=== PATIENT | female | born 1950 | race Caucasian/White ===

== ENCOUNTER 2018-01-28 20:13 | Emergency (ER) | payer MEDICARE, BC ==
[2018-01-28 20:29] VITALS: BP 146/67
--- NOTE | 2018-01-28 20:35 | EDM.PDOC ---
ED HPI GENERAL MEDICAL PROBLEM - General Chief Complaint: Upper Extremity Injury/Pain Stated Complaint: LEFT RING FINGER SWOLLEN Time Seen by Provider: 01/28/18 20:30 Source of Information: Reports: Patient, Old Records, RN History Limitations: Reports: No Limitations - History of Present Illness INITIAL COMMENTS - FREE TEXT/NARRATIVE: 67 yo female here requesting removal of her L hand ring finger due to some finger swelling from an injury associated with a fall this morning. Has nearly full ROM still in the injured fingers. Has some superficial scratches. Slipped on wet floor at home this morning. 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 (see below) (none) - Related Data Allergies Allergy/AdvReac Type Severity Reaction Status Date / Time diagnostic x-ray materials Allergy Mild Rash Uncoded 01/28/18 20:21 Home Meds: Home Meds Triamterene/Hydrochlorothiazid [Triamterene-HCTZ 37.5-25 MG] 1 mg PO DAILY 12/09 [History] Loratadine [Claritin] 10 mg PO DAILY 03/21/15 [History] Omeprazole [Prilosec] 20 mg PO DAILY 03/21/15 [History] Ondansetron [Zofran] 4 mg PO Q6H 03/21/15 [History] Anastrozole [Arimidex] 01/28/18 [History] Past Medical History HEENT History: Reports: Impaired Vision, Sinusitis Respiratory History: Reports: Pneumonia, Recurrent Genitourinary History: Reports: UTI, Recurrent 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: Musculoskeletal History: Reports: Osteoarthritis Oncologic (Cancer) History: Reports: Breast - Infectious Disease History Infectious Disease History: Reports: Chicken Pox, Measles, Shingles - Past Surgical History Oncologic Surgical History: Reports: Mastectomy Social & Family History - Family History Cardiac: Reports: Other (See Below) Other Cardiac Family History: Heart disease : Reports: Other (See Below) Other Family History: Kidney Disease, unkown type - Tobacco Use Smoking Status *Q: Never Smoker Review of Systems - Review of Systems Review Of Systems: See Below Constitutional: Reports: No Symptoms Musculoskeletal: Reports: Joint Swelling (PIP of L ring and long fingers) Skin: Reports: Bruising (minimal to the PIP jt of the L long and ring fingers.) Neurological: Reports: No Symptoms ED EXAM, GENERAL - Physical Exam Exam: See Below Exam Limited By: No Limitations General Appearance: Alert, WD/WN, No Apparent Distress Eye Exam: Bilateral Eye: Normal Inspection Ears: Hearing Grossly Normal Ear Exam: Bilateral Ear: Auricle Normal Nose: Normal Inspection, Normal Mucosa, No Blood Throat/Mouth: Normal Voice, No Airway Compromise Head: Atraumatic, Normocephalic Neck: Normal Inspection Respiratory/Chest: No Respiratory Distress, No Accessory Muscle Use Cardiovascular: Regular Rate, Rhythm Extremities: Normal Range of Motion, Joint Swelling (L ring and long fingers at PIP jts), Other (minimal pain). No: Increased Warmth Neurological: Alert, Oriented, CN II-XII Intact, Normal Cognition, No Motor/ Sensory Deficits Psychiatric: Normal Affect, Normal Mood Skin Exam: Warm, Dry, Intact, No Rash, Ecchymosis (minor at PIP jts of L index and ring fingers.) Course - Vital Signs Text/Narrative:: Ring removal by RN Last Recorded V/S: Last Vital Signs Temp 36.9 C 01/28/18 20:29 Pulse 76 01/28/18 20:29 Resp 14 01/28/18 20:29 BP 146/67 H 01/28/18 20:29 Pulse Ox 96 01/28/18 20:29 Departure - Departure Time of Disposition: 20:35 Disposition: Home, Self-Care 01 Condition: Good Clinical Impression: Tight ring on finger - Discharge Information *PRESCRIPTION DRUG MONITORING PROGRAM REVIEWED*: Not Applicable *COPY OF PRESCRIPTION DRUG MONITORING REPORT IN PATIENT CONTRERAS: Not Applicable Referrals: Shelia Osorio PA [Primary Care Provider] - Additional Instructions: Ibuprofen or acetaminophen as needed. Elevation to reduce swelling. Recheck if not fully recovered by 1 week.
== END 2018-01-28 21:06 | disposition home or self-care (01) ==
LOC: JP.ED 20:13
DX: S60.042A Contusion of left ring finger without damage to nail, initial encounter (principal); S60.022A Contusion of left index finger without damage to nail, initial encounter; Z79.899 Other long term (current) drug therapy; Z91.041 Radiographic dye allergy status; W19.XXXA Unspecified fall, initial encounter; Y92.009 Unspecified place in unspecified non-institutional (private) residence as the place of occurrence of the external cause
CPT/HCPCS: 99281; 99283

== ENCOUNTER 2020-05-18 20:31 | Emergency (ER) | payer MEDICARE, BC ==
[2020-05-18 21:00] VITALS: BP 172/86; PULSE 81
--- NOTE | 2020-05-18 21:52 | EDM.PDOC ---
ED HPI GENERAL MEDICAL PROBLEM - General Chief Complaint: ENT Problem Stated Complaint: THROAT DISCOMFORT Time Seen by Provider: 05/18/20 21:25 Source of Information: Reports: Patient History Limitations: Reports: No Limitations (On my arrival just letter signed off that she was not finished)) - History of Present Illness INITIAL COMMENTS - FREE TEXT/NARRATIVE: 69-year-old female has a sensation of something wrong with her throat, she has a lot of postnasal drip but last night she was trying to clear her throat and now she feels a masslike effect in her throat where something is moving when she tries to swallow. It is not obstructed, she has no fever or chills. Unfortunately she has a history of breast cancer and is very concerned that she has a tumor redeveloping. Onset: Gradual (Worsening over the past several days) Associated Symptoms: Reports: Other (Persistent postnasal drip). Denies: Fever/Chills, Shortness of Breath Middle Throat Pain Score (Numeric/FACES): 4 - Related Data Allergies Allergy/AdvReac Type Severity Reaction Status Date / Time diagnostic x-ray materials Allergy Mild Rash Uncoded 05/18/20 20:47 Home Meds: Home Meds Triamterene/Hydrochlorothiazid [Triamterene-HCTZ 37.5-25 MG] 1 mg PO DAILY 12/09/13 [History] Anastrozole [Arimidex] 1 mg PO DAILY 01/28/18 [History] atorvaSTATin [Lipitor] 20 mg PO DAILY 05/18/20 [History] Past Medical History HEENT History: Reports: Impaired Vision, Sinusitis Cardiovascular History: Reports: High Cholesterol Respiratory History: Reports: Pneumonia, Recurrent Genitourinary History: Reports: UTI, Recurrent 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: Musculoskeletal History: Reports: Back Pain, Chronic, Osteoarthritis Oncologic (Cancer) History: Reports: Breast - Infectious Disease History Infectious Disease History: Reports: Chicken Pox, Measles, Shingles - Past Surgical History Oncologic Surgical History: Reports: Mastectomy Social & Family History - Family History Cardiac: Reports: Other (See Below) Other Cardiac Family History: Heart disease : Reports: Other (See Below) Other Family History: Kidney Disease, unkown type - Tobacco Use Tobacco Use Status *Q: Never Tobacco User - Caffeine Use Caffeine Use: Reports: Coffee, Tea Caffeine Use Comment: one cup per day - Alcohol Use Days Per Week of Alcohol Use: 1 Number of Drinks Per Day: 1 Total Drinks Per Week: 1 - Recreational Drug Use Recreational Drug Use: No ED ROS ENT - Review of Systems Review Of Systems: See Below Constitutional: Denies: Fever, Chills, Malaise HEENT: Reports: Rhinitis, Sinus Problem Respiratory: Denies: Shortness of Breath Cardiovascular: Denies: Chest Pain GI/Abdominal: Denies: Nausea, Vomiting Skin: Reports: No Symptoms Neurological: Reports: No Symptoms ED EXAM, ENT - Physical Exam Exam: See Below Exam Limited By: No Limitations General Appearance: Alert, No Apparent Distress Mouth/Throat: Normal Inspection, Other (Pharynx has mild erythema but no exudate or asymmetry) Head: Atraumatic Neck: No: Lymphadenopathy (R), Lymphadenopathy (L) Respiratory/Chest: No Respiratory Distress, Lungs Clear Course - Vital Signs Last Recorded V/S: Last Vital Signs Temp 98.1 F 05/18/20 20:57 Pulse 81 05/18/20 20:57 Resp 16 05/18/20 20:57 BP 172/86 H 05/18/20 20:57 Pulse Ox 96 05/18/20 20:57 - Re-Assessments/Exams Free Text/Narrative Re-Assessment/Exam: 05/19/20 01:24 Tried to reassure the patient but she is very concerned. After discussing her condition with Dr. Solares, she will return tomorrow for an EGD. Departure - Departure Time of Disposition: 21:57 Disposition: Home, Self-Care 01 Clinical Impression: Dysphagia Qualifiers: Dysphagia type: oropharyngeal phase Qualified Code(s): R13.12 - Dysphagia, oropharyngeal phase - Discharge Information Instructions: Dysphagia Referrals: Shelia Osorio PA [Primary Care Provider] - Forms: ED Department Discharge Care Plan Goals: Return tomorrow morning for an EGD, arrive at 8:00 to be worked in for Dr. Solares's service. Sepsis Event Note (ED) - Evaluation Sepsis Screening Result: No Definite Risk - Focused Exam Vital Signs: Vital Signs Temp Pulse Resp BP Pulse Ox 05/18/20 20:57 98.1 F 81 16 172/86 H 96
== END 2020-05-18 21:58 | disposition home or self-care (01) ==
LOC: JP.ED 20:31
DX: R13.12 Dysphagia, oropharyngeal phase (principal); E78.00 Pure hypercholesterolemia, unspecified; Z91.048 Other nonmedicinal substance allergy status; Z79.899 Other long term (current) drug therapy
CPT/HCPCS: 99282

== ENCOUNTER 2020-05-19 07:35 | Day surgery (SDC) | payer MEDICARE, BC ==
[2020-05-19] MEDS ORDERED: fentaNYL 100 MCG/2 ML SDV ONE (08:08)
[2020-05-19] MEDS ORDERED: Midazolam 1 MG/ML 2 ML SDV ONE (08:08)
[2020-05-19] MEDS ORDERED: Propofol 200 MG/20 ML SDV ONE (08:08)
[2020-05-19] MEDS ORDERED: Dextrose 5%-Lactated Ringers 1,000 ML IV SCH (08:15)
[2020-05-19] MEDS ORDERED: Glycopyrrolate 0.2 MG/ML 2 ML SDV IVPUSH ONE (09:30)
[2020-05-19 11:13] VITALS: BP 147/83; PULSE 72
--- NOTE | 2020-06-01 15:57 | OR ---
DATE OF PROCEDURE: 05/19/2020 SURGEON: Hernandez Solares MD PREOPERATIVE DIAGNOSES: Laryngopharyngeal dysphagia and globus sensation. POSTOPERATIVE DIAGNOSES: Laryngopharyngeal dysphagia and globus sensation with no gross abnormality within the laryngopharynx or upper esophagus. OPERATIVE PROCEDURE: Esophagogastroduodenoscopy with antral biopsies for CLOtest. ANESTHESIA: IV sedation. INDICATION FOR PROCEDURE: This is a 69-year-old female presenting with a picture of globus sensation and some laryngopharyngeal dysphagia. She does report that she has a large amount of sinus type drainage. Plan is to proceed with upper GI endoscopy with biopsies or dilation as indicated. Potential risks including bleeding and perforation were discussed, and the patient wishes to proceed. DETAILS OF PROCEDURE: The patient was taken to the operating room and placed in a left lateral decubitus position. IV sedation was administered after which the upper GI endoscope was passed orally through the length of the esophagus, into the stomach with retroflexion view of the fundus, and thereafter, through the pyloric channel into the junction of third and fourth portions of the duodenum. The overall examination was grossly unremarkable. There was no redness or inflammatory changes within the larynx or pharynx identified. Upper esophageal sphincter likewise was normal as was the upper esophagus. Remainder of the gastric and duodenal exams were likewise unremarkable. Biopsies were obtained from the antrum to establish the patient's H pylori status. Minimal bleeding from the biopsy site was seen. The situation of the large amount of sinus drainage was addressed per Key Malik, and the patient was recommended to initially try Claritin or Zyrtec as well as increasing the water intake and humidity when going to bed, and the patient will be following up with Shelia Osorio PA-C, at [facility] in 2 weeks. Hernandez Solares MD /[id number]
== END 2020-05-19 11:35 | disposition home or self-care (01) ==
LOC: JP.SDS 07:35
PROVIDERS: ATTEND Surgery
DX: R13.19 Other dysphagia (principal); E66.9 Obesity, unspecified; Z91.041 Radiographic dye allergy status; Z01.812 Encounter for preprocedural laboratory examination; Z20.822 Contact with and (suspected) exposure to COVID-19; Z68.31 Body mass index [BMI] 31.0-31.9, adult
CPT/HCPCS: 43239; 87081; J2250; J2704; J3010; J3490; J7121; U0002

== ENCOUNTER 2021-12-28 14:08 | Emergency (ER) | payer MEDICARE, BC ==
[2021-12-28] MEDS: oxyCODONE 5 MG Tab PO ONE (14:57)
[2021-12-28 16:51] VITALS: BP 158/73; PULSE 84
== END 2021-12-28 17:18 | disposition home or self-care (01) ==
LOC: JP.ED 14:08
DX: R55 Syncope and collapse (principal); M25.551 Pain in right hip; E78.00 Pure hypercholesterolemia, unspecified; Z91.041 Radiographic dye allergy status; Z79.899 Other long term (current) drug therapy; Z96.643 Presence of artificial hip joint, bilateral
CPT/HCPCS: 73502; 99284; A9270

== ENCOUNTER 2024-04-10 07:38 | Day surgery (SDC) | payer MEDICARE, BC ==
[2024-04-10] MEDS ORDERED: Propofol 200 MG/20 ML SDV ONE (08:35)
[2024-04-10] MEDS ORDERED: fentaNYL 100 MCG/2 ML SDV ONE (08:35)
[2024-04-10] MEDS: Lactated Ringers 1,000 ML IV SCH (08:36)
[2024-04-10 10:27] VITALS: BP 126/66; PULSE 65
== END 2024-04-10 10:45 | disposition home or self-care (01) ==
LOC: JP.SDS 07:38
PROVIDERS: ATTEND Surgery
DX: Z12.11 Encounter for screening for malignant neoplasm of colon (principal); K57.30 Diverticulosis of large intestine without perforation or abscess without bleeding; K21.9 Gastro-esophageal reflux disease without esophagitis; I12.9 Hypertensive chronic kidney disease with stage 1 through stage 4 chronic kidney disease, or unspecified chronic kidney disease; N18.9 Chronic kidney disease, unspecified; E66.9 Obesity, unspecified
CPT/HCPCS: G0121; J2704; J3010; J7120